=== PATIENT | male | born 1975 | race Two or more races ===

== ENCOUNTER 2023-03-24 13:43 | Emergency (ER) | payer MEDICAID ==
[~2023-03-24] VITALS: Ht 165.1 cm; Wt 77.1 kg
[2023-03-24 14:13] VITALS: BP 103/54; PULSE 65; RESP 15; TEMP 97.5; O2SAT 97
[2023-03-24] MEDS ORDERED: KETOROLAC TROMETH 60MG/2ML VIAL IM ONE (14:45)
[2023-03-24] MEDS ORDERED: PRED20TA2 PO (15:31)
[2023-03-24] MEDS ORDERED: IBUP-1456 PO (15:31)
== END 2023-03-24 15:18 | disposition home or self-care (01) ==
LOC: ER 13:43
DX: M54.42 Lumbago with sciatica, left side (principal); M54.41 Lumbago with sciatica, right side
CPT/HCPCS: 96372; 99283; J1885

== ENCOUNTER 2023-12-31 14:41 | Emergency (ER) | payer MEDICAID ==
[~2023-12-31] VITALS: Ht 167.6 cm; Wt 79.0 kg
[~2023-12-31 14:41] MED LIST: IBUP-1456 PO; PRED20TA2 PO
[2023-12-31] MEDS ORDERED: IBUP-1455 PO (16:44)
[2023-12-31] MEDS ORDERED: METH4PAK PO (16:44)
[2023-12-31 17:00] VITALS: BP 106/71; PULSE 80; RESP 19; TEMP 97.7; O2SAT 98
[2023-12-31] MEDS: methylPREDNISolone SOD SUCC 125 MG/2 ML VL IM ONE (17:01)
[2023-12-31] MEDS: KETOROLAC TROMETH 60MG/2ML VIAL IM ONE (17:01)
[2023-12-31] MEDS: HYDROcodone-ACET 7.5/325MG TAB PO ONE (17:01)
== END 2023-12-31 17:30 | disposition home or self-care (01) ==
LOC: ER 14:41
DX: M54.30 Sciatica, unspecified side (principal)
CPT/HCPCS: 96372; 99284; J1885; J2919